=== PATIENT | female | born 1970 | race Caucasian/White ===

== ENCOUNTER 2018-03-26 07:16 | Inpatient (IN) ==
[2018-03-26] MEDS ORDERED: SODIUM CHLORIDE 0.9% 1,000 ML IV STA ×2 (07:59→08:52)
[2018-03-26] MEDS ORDERED: ONDANSETRON 4 MG/2 ML VIAL IV STA (07:59)
[2018-03-26 08:10] LABS: Basophils % 0.2 % (0.0-0.8); Hematocrit 37.8 VOL% (35.7-47.0); Hemoglobin 12.9 GM/DL (12.0-16.0); Immature Granulocytes % 1.3 %; Immature Granulocytes Absolute 0.18 #; Lymphocytes # 0.8 10*3/uL (1.4-4.0); Lymphocytes % 5.6 % (21.3-54.2); Mean Corpuscular HGB Conc 34.1 GM/DL (32-36); Mean Corpuscular Hemoglobin 32 PG (27-34); Mean Corpuscular Volume 93.1 FL (87-102); Mean Platelet Volume 10.3 FL (9.6-12.0); Monocytes # 0.8 10*3/uL (0.11-0.8); Monocytes % 5.4 % (1.7-12.7); Neutrophils # 12.4 10*3/uL (1.4-7.4); Neutrophils % 87.5 % (38.7-73.9); Platelet Count 232 T/CUMM (130-400); Red Blood Count 4.06 MC/CUMM (3.8-5.5); White Blood Count 14.1 T/CUMM (4-12)
[2018-03-26 08:18] LABS: Alanine Aminotransferase 32 U/L (13-56); Albumin 3.2 G/DL (3.4-5.0); Alkaline Phosphatase 59 U/L (45-117); Amylase 19 U/L (25-115); Aspartate Amino Transferase 9 U/L (0-37); Blood Urea Nitrogen 7 MG/DL (7-18); Glucose 137 MG/DL (74-106); Osmolality,Calculated 274.7 MOS/KG (273-304); Potassium 3.1 MMOL/L (3.5-5.1); Sodium 138 MMOL/L (136-145); Total Protein 7.4 G/DL (6.4-8.3)
[2018-03-26 08:20] LABS: Lactic Acid 2.6 MMOL/L (0.4-2.0)
[2018-03-26 09:13] LABS: Apearance,Urine CLOUDY (Clear); Bilirubin,Urine Negative (Negative); Blood, Urine Moderate mg/dL (Negative); Glucose,Urine (UA) Negative (Negative); Ketones,Urine 5 mg/dL (Negative); Mucus,Urine Many /LPF (Occasional); Nitrite,Urine Negative (Negative); Protein,Urine 30 MG/DL; RBC,Urine 19 /HPF (0-4); Squamous Epithelial Cell,Urine Few /HPF (0-10); Urine Color Yellow (Yellow); Urine Specific Gravity 1.019 (1.001-1.035); WBC,Urine 167 /HPF (0-6)
[2018-03-26] MEDS ORDERED: cefTRIAXone 1,000 MG in SODIUM CHLORIDE 0.9% 100 ML IV STA (09:17)
[2018-03-26] MEDS ORDERED: GENTAMICIN INJ 140 MG in SODIUM CHLORIDE 0.9% 100 ML IV STA (09:39)
[2018-03-26] MEDS ORDERED: SODIUM CHLORIDE 0.9% 1,000 ML IV SCH (10:00)
[2018-03-26] MEDS: ACETAMINOPHEN 325 MG TABLET PO PRN ×2 (11:44→19:14)
[2018-03-26] MEDS ORDERED: MORPHINE 4 MG/1 ML VIAL IV PRN (15:57)
[2018-03-26] MEDS ORDERED: GENTAMICIN INJ 160 MG in SODIUM CHLORIDE 0.9% 100 ML IV SCH (16:00)
[2018-03-26] MEDS: LEVOFLOXACIN INJ 750 MG in PREMIX 1 EACH IV SCH (18:01)
[2018-03-26] MEDS: ONDANSETRON 4 MG/2 ML VIAL IV PRN (18:54)
[2018-03-26] MEDS: POTASSIUM CHLORIDE INJ 20 MEQ in SODIUM CHLORIDE 0.9% 1,000 ML IV SCH (19:41)
[2018-03-26] MEDS: POTASSIUM CHLORIDE RIDER 10 MEQ in PREMIX 1 EACH IV SCH ×2 (19:41→22:20)
[2018-03-26] MEDS ORDERED: cefTRIAXone 1,000 MG in SYRINGE 1 EACH IV SCH (21:00)
[2018-03-26] MEDS: DOCUSATE SODIUM 100 MG CAPSULE PO SCH (22:18)
[2018-03-27] MEDS: ONDANSETRON 4 MG/2 ML VIAL IV PRN (00:04)
[2018-03-27] MEDS: POTASSIUM CHLORIDE RIDER 10 MEQ in PREMIX 1 EACH IV SCH (00:08)
[2018-03-27] MEDS ORDERED: POTASSIUM CHLORIDE RIDER 10 MEQ in PREMIX 1 EACH IV SCH (00:30)
[2018-03-27] MEDS: POTASSIUM CHLORIDE INJ 20 MEQ in SODIUM CHLORIDE 0.9% 1,000 ML IV SCH (02:19)
[2018-03-27] MEDS: ACETAMINOPHEN 325 MG TABLET PO PRN ×3 (04:48→23:13)
[2018-03-27 05:26] LABS: Basophils % 0.3 % (0.0-0.8); Eosinophils % 0.1 % (0.00-10.9); Hematocrit 34.2 VOL% (35.7-47.0); Hemoglobin 11.1 GM/DL (12.0-16.0); Immature Granulocytes % 1.3 %; Immature Granulocytes Absolute 0.14 #; Lymphocytes % 8.8 % (21.3-54.2); Mean Corpuscular HGB Conc 32.5 GM/DL (32-36); Mean Corpuscular Hemoglobin 31 PG (27-34); Mean Corpuscular Volume 95.3 FL (87-102); Mean Platelet Volume 10.4 FL (9.6-12.0); Monocytes # 0.7 10*3/uL (0.11-0.8); Monocytes % 6.6 % (1.7-12.7); Neutrophils % 82.9 % (38.7-73.9); Platelet Count 237 T/CUMM (130-400); Red Blood Count 3.59 MC/CUMM (3.8-5.5); Red Cell Distribution Width 12.9 % (9.3-17.3); White Blood Count 10.9 T/CUMM (4-12)
[2018-03-27 05:42] LABS: Alanine Aminotransferase 23 U/L (13-56); Albumin 2.4 G/DL (3.4-5.0); Alkaline Phosphatase 53 U/L (45-117); Aspartate Amino Transferase 8 U/L (0-37); Bilirubin,Total < 0.39 MG/DL (0.2-1.0); Blood Urea Nitrogen 6 MG/DL (7-18); Calcium 8.5 MG/DL (8.5-10.1); Glucose 91 MG/DL (74-106); Osmolality,Calculated 276.4 MOS/KG (273-304); Potassium 3.7 MMOL/L (3.5-5.1); Sodium 140 MMOL/L (136-145); Total Protein 6.3 G/DL (6.4-8.3)
[2018-03-27 08:43] LABS: Sedimentation Rate-Westergren 90 MM/HR (0-20)
[2018-03-27] MEDS: DOCUSATE SODIUM 100 MG CAPSULE PO SCH ×2 (09:54→20:45)
[2018-03-27] MEDS: PANTOPRAZOLE 40 MG TABLET PO SCH (09:54)
[2018-03-27 10:23] LABS: Total Protein 6.8 G/DL (6.4-8.3)
[2018-03-27] MEDS: SODIUM CHLOR 0.9% KCL 20 MEQ 20 MEQ/1,000 ML BAG IV SCH ×2 (10:40→20:51)
[2018-03-27] MEDS: LEVOFLOXACIN INJ 750 MG in PREMIX 1 EACH IV SCH (18:13)
[2018-03-28] MEDS: SODIUM CHLOR 0.9% KCL 20 MEQ 20 MEQ/1,000 ML BAG IV SCH (05:44)
[2018-03-28 07:14] LABS: Basophils % 0.3 % (0.0-0.8); Eosinophils % 0.4 % (0.00-10.9); Hematocrit 34.7 VOL% (35.7-47.0); Hemoglobin 11.2 GM/DL (12.0-16.0); Immature Granulocytes % 1.9 %; Immature Granulocytes Absolute 0.17 #; Lymphocytes % 10.4 % (21.3-54.2); Mean Corpuscular HGB Conc 32.3 GM/DL (32-36); Mean Corpuscular Hemoglobin 31 PG (27-34); Mean Corpuscular Volume 96.4 FL (87-102); Mean Platelet Volume 9.9 FL (9.6-12.0); Monocytes # 0.8 10*3/uL (0.11-0.8); Monocytes % 8.3 % (1.7-12.7); Neutrophils # 7.2 10*3/uL (1.4-7.4); Neutrophils % 78.7 % (38.7-73.9); Platelet Count 279 T/CUMM (130-400); Red Cell Distribution Width 13.1 % (9.3-17.3); White Blood Count 9.1 T/CUMM (4-12)
[2018-03-28 07:38] VITALS: BP 119/67
[2018-03-28 07:39] LABS: Immunoglobulin A (Chem) 111 MG/DL (70-400); Immunoglobulin G (Chem) 610 MG/DL (700-1600); Immunoglobulin M (Chem) 55 MG/DL (40-230); Total Protein (Chem) 6.3 G/DL (6.4-8.3)
[2018-03-28 07:43] LABS: Calcium 9.1 MG/DL (8.5-10.1); Osmolality,Calculated 274.5 MOS/KG (273-304); Potassium 3.5 MMOL/L (3.5-5.1)
[2018-03-28] MEDS ORDERED: CEFUROXIME 500 MG TABLET PO SCH (09:00)
[2018-03-28] MEDS: DOCUSATE SODIUM 100 MG CAPSULE PO SCH (09:18)
[2018-03-28] MEDS: ACETAMINOPHEN 325 MG TABLET PO PRN (09:19)
[2018-03-28] MEDS: PANTOPRAZOLE 40 MG TABLET PO SCH (09:19)
[2018-03-28 09:21] LABS: Albumin (SPE) 3.6 G/DL (3.2-5.3); Albumin (SPE) Rel % 57.4 %; Alpha 1 (SPE) 0.4 G/DL (0.1-0.4); Alpha 2 (SPE) 0.9 G/DL (0.4-1.0); Alpha 2 (SPE) Rel % 14.8 %; Beta (SPE) 0.9 G/DL (0.5-1.1); Beta (SPE) Rel % 13.3 %; Gamma (SPE) 0.5 G/DL (0.7-1.7); Gamma (SPE) Rel % 8.5 %
== END 2018-03-28 10:35 | disposition home or self-care (01) | DRG 866 ==
LOC: N.ED 07:16 → N.EDINP 09:39 → N.4E 13:04
PROVIDERS: ADMIT Family Medicine; ATTEND Family Medicine

== ENCOUNTER 2022-03-26 09:18 | Inpatient (IN) ==
[2022-03-26] MEDS ORDERED: SODIUM CHLORIDE 0.9% 1,000 ML IV STA (09:45)
[2022-03-26] MEDS ORDERED: ONDANSETRON 4 MG/2 ML VIAL IV STA (09:45)
[2022-03-26] MEDS ORDERED: HYDROmorphone 1 MG/1 ML SYRINGE IV STA ×2 (09:45→12:30)
[2022-03-26 10:02] LABS: Basophils % 0.1 % (0.0-0.8); Hemoglobin 14.9 GM/DL (12.0-16.0); Immature Granulocytes % 0.4 %; Immature Granulocytes Absolute 0.03 #; Lymphocytes # 0.8 10*3/uL (1.4-4.0); Lymphocytes % 11.2 % (21.3-54.2); Mean Corpuscular HGB Conc 33.9 GM/DL (32-36); Mean Corpuscular Volume 91.7 FL (87-102); Mean Platelet Volume 10.2 FL (9.6-12.0); Monocytes # 0.4 10*3/uL (0.11-0.8); Monocytes % 4.9 % (1.7-12.7); Neutrophils % 83.4 % (38.7-73.9); Platelet Count 295 T/CUMM (130-400); White Blood Count 7.3 T/CUMM (4-12)
[2022-03-26 10:21] LABS: Albumin 4.1 G/DL (3.4-5.0); Bilirubin,Total 0.6 MG/DL (0.20-1.00); Calcium 10.5 MG/DL (8.5-10.1); Osmolality,Calculated 276.8 MOS/KG (273-304); Potassium 3.5 MMOL/L (3.5-5.1)
[2022-03-26 11:52] LABS: Bilirubin,Urine Negative (Negative); Blood, Urine Trace mg/dL (Negative); Glucose,Urine (UA) Negative (Negative); Hyaline Casts,Urine 2 /LPF (0-3); Ketones,Urine Negative (Negative); Mucus,Urine Many /LPF (Occasional); Nitrite,Urine Negative (Negative); Protein,Urine Negative (Negative); RBC,Urine 6 /HPF (0-4); Squamous Epithelial Cell,Urine Occasional /HPF (0-10); Urine Appearance Clear (Clear); Urine Color Yellow (Yellow); Urine Specific Gravity > 1.030 (1.001-1.035); Urine pH 5.5 (4.5-8.0)
[2022-03-26 11:53] LABS: Urine Urobilinogen 0.2 eU/dL (<2.0)
[2022-03-26] MEDS: SODIUM CHLORIDE 0.9% 1,000 ML IV SCH ×2 (15:00→23:00)
[2022-03-26] MEDS ORDERED: INFLUENZA VIRUS VACCINE 0.5 ML SYRINGE IM ONE (16:37)
[2022-03-26] MEDS: HYDROmorphone 1 MG/1 ML SYRINGE IV PRN (16:43)
[2022-03-26] MEDS: ONDANSETRON 4 MG/2 ML VIAL IV PRN (16:47)
[2022-03-27] MEDS: ONDANSETRON 4 MG/2 ML VIAL IV PRN ×2 (01:20→07:55)
[2022-03-27] MEDS: HYDROmorphone 1 MG/1 ML SYRINGE IV PRN ×2 (01:21→07:54)
[2022-03-27 05:18] LABS: Basophils % 0.1 % (0.0-0.8); Hematocrit 38.7 VOL% (35.7-47.0); Hemoglobin 12.5 GM/DL (12.0-16.0); Immature Granulocytes % 0.4 %; Immature Granulocytes Absolute 0.04 #; Lymphocytes # 1.2 10*3/uL (1.4-4.0); Lymphocytes % 12.1 % (21.3-54.2); Mean Corpuscular HGB Conc 32.3 GM/DL (32-36); Mean Platelet Volume 10.6 FL (9.6-12.0); Monocytes # 0.7 10*3/uL (0.11-0.8); Monocytes % 6.6 % (1.7-12.7); Neutrophils % 80.8 % (38.7-73.9); Platelet Count 233 T/CUMM (130-400); Red Blood Count 3.99 MC/CUMM (3.8-5.5); Red Cell Distribution Width 13.2 % (9.3-17.3); White Blood Count 10.2 T/CUMM (4-12)
[2022-03-27 05:33] LABS: Risk Ratio 2.05; VLDL Cholesterol 14.8 MG/DL
[2022-03-27 07:25] LABS: Albumin 3.2 G/DL (3.4-5.0); Bilirubin,Direct 0.22 MG/DL (0.0-0.20); Bilirubin,Indirect 0.5 MG/DL (0.0-1.0); Bilirubin,Total 0.7 MG/DL (0.20-1.00); Total Protein 6.1 G/DL (6.4-8.2)
[2022-03-27] MEDS: SODIUM CHLORIDE 0.9% 1,000 ML IV SCH ×2 (07:56→14:23)
[2022-03-27] MEDS: PANTOPRAZOLE 40 MG VIAL IV SCH (09:12)
[2022-03-27] MEDS ORDERED: HYDROmorphone 1 MG/1 ML SYRINGE IV ONE (10:19)
[2022-03-27] MEDS: PROMETHAZINE 25 MG/1 ML VIAL IM PRN (10:57)
[2022-03-27] MEDS: VENLAFAXINE XR 37.5 MG CAPSULE PO SCH (10:57)
[2022-03-27] MEDS: IBUPROFEN 600 MG TABLET PO PRN (10:57)
[2022-03-27] MEDS: TRIAMTERENE/HCTZ 37.5-25 MG TABLET PO SCH (10:57)
[2022-03-27] MEDS ORDERED: INDOMETHACIN SUPP 50 MG SUPP RECTAL ONE (12:08)
[2022-03-27 12:37] LABS: PT Patient Result 11.1 SECS (10.1-12.1)
[2022-03-27] MEDS ORDERED: SCOPOLAMINE 1.5 MG PATCH TRANSDERM STA (12:40)
[2022-03-27] MEDS: LACTATED RINGERS 1,000 ML IV SCH (12:45)
[2022-03-27] MEDS ORDERED: DESFLURANE 1 UNIT/15 MINUTE INH ONE (12:57)
[2022-03-27] MEDS ORDERED: fentaNYL 100 MCG/2 ML VIAL ONE (13:17)
[2022-03-27] MEDS ORDERED: diphenhydrAMINE 50 MG/1 ML VIAL ONE (13:43)
[2022-03-27] MEDS ORDERED: methylPREDNISolone SOD SUC 125 MG/2 ML VIAL ONE (13:44)
[2022-03-27] MEDS ORDERED: ONDANSETRON 4 MG/2 ML VIAL ONE (13:45)
[2022-03-27] MEDS ORDERED: propofoL 200 MG/20 ML VIAL IV ONE (13:45)
[2022-03-27] MEDS ORDERED: SUCCINYLCHOLINE 200 MG/10 ML VIAL ONE (13:45)
[2022-03-27] MEDS ORDERED: LIDOCAINE 2% 5 ML VIAL ONE (13:45)
[2022-03-28] MEDS: IBUPROFEN 600 MG TABLET PO PRN (03:05)
[2022-03-28] MEDS: SODIUM CHLORIDE 0.9% 1,000 ML IV SCH ×3 (07:00→14:18)
[2022-03-28] MEDS ORDERED: PIPERACILLIN/TAZOBACTAM 3,375 MG in SODIUM CHLORIDE 0.9% 100 ML IV ONE (08:05)
[2022-03-28 08:07] LABS: Basophils % 0.1 % (0.0-0.8); Eosinophils % 0.1 % (0.00-10.9); Hematocrit 35.7 VOL% (35.7-47.0); Hemoglobin 11.6 GM/DL (12.0-16.0); Immature Granulocytes % 0.7 %; Immature Granulocytes Absolute 0.09 #; Lymphocytes # 1.5 10*3/uL (1.4-4.0); Lymphocytes % 11.6 % (21.3-54.2); Mean Corpuscular HGB Conc 32.5 GM/DL (32-36); Mean Corpuscular Volume 95.7 FL (87-102); Mean Platelet Volume 10.1 FL (9.6-12.0); Monocytes # 0.9 10*3/uL (0.11-0.8); Monocytes % 7.1 % (1.7-12.7); Neutrophils % 80.4 % (38.7-73.9); Platelet Count 219 T/CUMM (130-400); Red Blood Count 3.73 MC/CUMM (3.8-5.5); Red Cell Distribution Width 13.3 % (9.3-17.3); White Blood Count 13.2 T/CUMM (4-12)
[2022-03-28] MEDS: TRIAMTERENE/HCTZ 37.5-25 MG TABLET PO SCH (08:29)
[2022-03-28] MEDS: VENLAFAXINE XR 37.5 MG CAPSULE PO SCH (08:29)
[2022-03-28 08:35] LABS: Albumin 2.8 G/DL (3.4-5.0); Bilirubin,Total 0.5 MG/DL (0.20-1.00); Calcium 9.7 MG/DL (8.5-10.1); Osmolality,Calculated 273.7 MOS/KG (273-304); Potassium 3.5 MMOL/L (3.5-5.1); Total Protein 6.7 G/DL (6.4-8.2)
[2022-03-28] MEDS ORDERED: PROMETHAZINE INJ 25 MG in SODIUM CHLORIDE 0.9% 50 ML IV PRN (09:09)
[2022-03-28] MEDS ORDERED: diphenhydrAMINE 50 MG/1 ML VIAL IV PRN (09:09)
[2022-03-28] MEDS ORDERED: ONDANSETRON 4 MG/2 ML VIAL IV PRN (09:09)
[2022-03-28] MEDS ORDERED: HYDROmorphone 1 MG/1 ML SYRINGE IV PRN (09:09)
[2022-03-28] MEDS ORDERED: MEPERIDINE 50 MG/1 ML VIAL IV PRN (09:09)
[2022-03-28] MEDS: PANTOPRAZOLE 40 MG VIAL IV SCH (10:00)
[2022-03-28] MEDS ORDERED: ONDANSETRON 4 MG/2 ML VIAL ONE (10:21)
[2022-03-28] MEDS ORDERED: DEXAMETHASONE 4 MG/1 ML VIAL ONE (10:21)
[2022-03-28] MEDS ORDERED: propofoL 200 MG/20 ML VIAL IV ONE (10:21)
[2022-03-28] MEDS ORDERED: ROCURONIUM 50 MG/5 ML VIAL IV ONE (10:21)
[2022-03-28] MEDS ORDERED: fentaNYL 100 MCG/2 ML VIAL ONE (10:22)
[2022-03-28] MEDS ORDERED: MIDAZOLAM 2 MG/2 ML VIAL ONE (10:42)
[2022-03-28] MEDS ORDERED: SCOPOLAMINE 1.5 MG PATCH TRANSDERM ONE (10:50)
[2022-03-28] MEDS ORDERED: BUPIVACAINE MPF 0.25% 10 ML VIAL ONE (11:11)
[2022-03-28] MEDS ORDERED: PROMETHAZINE 25 MG/1 ML VIAL ONE (11:17)
[2022-03-28] MEDS ORDERED: SEVOFLURANE 1 UNIT/15 MINUTE INH ONE ×3 (11:21→12:19)
[2022-03-28] MEDS ORDERED: GLYCOPYRROLATE 0.4 MG/2 ML VIAL ONE (12:04)
[2022-03-28] MEDS ORDERED: NEOSTIGMINE 10 MG/10 ML VIAL ONE (12:04)
[2022-03-28] MEDS: LACTATED RINGERS 1,000 ML IV SCH (12:45)
[2022-03-28] MEDS ORDERED: KETOROLAC 30 MG/1 ML VIAL IV ONE (13:56)
[2022-03-28] MEDS: PROMETHAZINE 25 MG/1 ML VIAL IM PRN (14:18)
[2022-03-28] MEDS: HYDROmorphone 1 MG/1 ML SYRINGE IV PRN ×2 (14:18→21:49)
[2022-03-29] MEDS: SODIUM CHLORIDE 0.9% 1,000 ML IV SCH (01:37)
[2022-03-29] MEDS: HYDROmorphone 1 MG/1 ML SYRINGE IV PRN ×2 (01:40→06:10)
[2022-03-29] MEDS: IBUPROFEN 600 MG TABLET PO PRN (05:11)
[2022-03-29] MEDS: PROMETHAZINE 25 MG/1 ML VIAL IM PRN (06:10)
[2022-03-29] MEDS: TRIAMTERENE/HCTZ 37.5-25 MG TABLET PO SCH (10:23)
[2022-03-29] MEDS: VENLAFAXINE XR 37.5 MG CAPSULE PO SCH (10:24)
[2022-03-29] MEDS: PANTOPRAZOLE 40 MG VIAL IV SCH (10:24)
[2022-03-29 12:25] VITALS: BP 109/64
[2022-03-29] MEDS: LACTATED RINGERS 1,000 ML IV SCH (12:46)
== END 2022-03-29 12:51 | disposition home or self-care (01) | DRG 418 ==
LOC: N.ED 09:18 → N.EDINP 12:45 → N.5E 15:18
PROVIDERS: ADMIT Family Medicine; ATTEND Family Medicine
PROC: ERCPWSP (ICD-10-PCS; 2022-03-27 07:05)
PROC: LAPCHOL (2022-03-28 10:55)